=== PATIENT | female | born 1985 | race Caucasian/White ===

== ENCOUNTER → 2017-05-07 | Outpatient (CLI) | payer OTHER ==
[~2017-05-07] MED LIST: None at this time
== END ==
LOC: CFH 09:56
PROVIDERS: ATTEND Nurse Practitioner
DX: Z12.31 Encounter for screening mammogram for malignant neoplasm of breast (principal); N83.292 Other ovarian cyst, left side; N83.291 Other ovarian cyst, right side; Z97.5 Presence of (intrauterine) contraceptive device
CPT/HCPCS: 76856; 77067